=== PATIENT | female | born 1970 | race Caucasian/White ===

== ENCOUNTER 2019-10-16 07:35 | Emergency (ER) | payer OTHER, MEDICAID ==
[~2019-10-16] VITALS: Ht 170.2 cm; Wt 127.6 kg
[2019-10-16 07:48] VITALS: BP 156/95
== END 2019-10-16 09:29 | disposition home or self-care (01) ==
LOC: ED 09:20
DX: M75.31 Calcific tendinitis of right shoulder (principal); M25.511 Pain in right shoulder
CPT/HCPCS: 99283

== ENCOUNTER 2020-08-08 20:50 | Emergency (ER) | payer MEDICAID, OTHER ==
[~2020-08-08] VITALS: Ht 170.2 cm; Wt 95.0 kg
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
[2020-08-08 21:21] LABS: BASOPHILS % (AUTO) 4 % (0-1); EOSINOPHILS % (AUTO) 1 % (1-7); LYMPHOCYTES % (AUTO) 19 % (22-44); MEAN CORPUSCULAR HEMOGLOBIN 20.9 pg (27.0-34.8); MEAN CORPUSCULAR HGB CONC 30.8 g/dL (32.4-35.8); MEAN PLATELET VOLUME 6.7 fL (7.4-10.4); MONOCYTES % (AUTO) 7 % (2-9); NEUTROPHILS % (AUTO) 70 % (42-75); PLATELET COUNT 412 x10^3/uL (130-400); RED CELL DISTRIBUTION WIDTH 20.1 % (9.6-15.2)
[2020-08-08 21:27] LABS: MD MORPH REVIEW ONLY
[2020-08-08 21:28] LABS: ALANINE AMINOTRANSFERASE 26 U/L (12-78); ALBUMIN 3.8 g/dL (3.4-5.0); ANION GAP 6 mmol/L (5-15); CALCIUM 8.5 mg/dL (8.5-10.1); CHLORIDE 110 mmol/L (98-107); CREATININE 0.84 mg/dL (0.55-1.02)
[2020-08-08 21:29] LABS: SALICYLATE LEVEL < 1.7 mg/dL (2.8-20.0)
[2020-08-08 21:38] LABS: ALKALINE PHOSPHATASE 116 U/L (45-117); BILIRUBIN,TOTAL 0.3 mg/dL (0.2-1.0); TOTAL PROTEIN 7.5 g/dL (6.4-8.2)
--- NOTE | 2020-08-08 21:44 | NUR ---
got patient peanut butter jelly sandwich, daughter here visiting and being very supportive.
[2020-08-08 21:58] LABS: FREE T4 (FREE THYROXINE) 0.83 ng/dL (0.76-1.46)
[2020-08-08 22:01] LABS: AMPHETAMINE SCREEN, URINE Positive (Negative); BARBITURATE SCREEN, URINE Negative (Negative); BENZODIAZEPINE SCREEN, URINE Negative (Negative); CANNABINOID SCREEN, URINE Negative (Negative); COCAINE SCREEN, URINE Negative (Negative); METHADONE SCREEN, URINE Negative (Negative); OPIATE SCREEN, URINE Negative (Negative)
[2020-08-08 22:16] LABS: <PLATELET ESTIMATE> INCREASED; <PLT MORPHOLOGY> NORMAL PLT MORPH; HYPOCHROMIA 2+; MICROCYTOSIS 2+; OVALOCYTES 1+; POLYCHROMASIA 1+
[2020-08-08] MEDS ORDERED: DIPH,PERTUSS(ACELL),TET VAC/PF 0.5 ML IM-VACC ONE ×2 (22:30→23:26)
[2020-08-08] MEDS ORDERED: LIDOCAINE 1%-EPI 1:100K, 20ML INFIL ONE (22:30)
[2020-08-08] MEDS ORDERED: LIDOCAINE-MPF 1%, 5ML INFIL ONE (22:30)
--- NOTE | 2020-08-08 23:17 | NUR ---
j luis arndt [phone]
--- NOTE | 2020-08-08 23:40 | NUR ---
patient sutured. waiting telepsych. calm.
--- NOTE | 2020-08-09 00:46 | NUR ---
patient talking to telepsych
[2020-08-09 01:43] VITALS: BP 132/78
== END 2020-08-09 01:45 | disposition home or self-care (01) ==
LOC: ED 08-09 01:00
DX: S51.812A Laceration without foreign body of left forearm, initial encounter (principal); F43.20 Adjustment disorder, unspecified; D50.9 Iron deficiency anemia, unspecified; F17.210 Nicotine dependence, cigarettes, uncomplicated; F15.10 Other stimulant abuse, uncomplicated; J45.909 Unspecified asthma, uncomplicated; G43.909 Migraine, unspecified, not intractable, without status migrainosus; Z86.711 Personal history of pulmonary embolism; Z90.49 Acquired absence of other specified parts of digestive tract; X83.8XXA Intentional self-harm by other specified means, initial encounter; Y93.89 Activity, other specified; Y92.89 Other specified places as the place of occurrence of the external cause; Y99.8 Other external cause status
CPT/HCPCS: 12035; 36415; 80053; 80299; 80307; 80320; 80329; 84439; 84443; 84703; 85025; 90471; 90715; G0480

== ENCOUNTER 2020-08-19 14:43 | Emergency (ER) | payer MEDICAID ==
[~2020-08-19] VITALS: Ht 170.2 cm; Wt 129.5 kg
[2020-08-19 14:49] VITALS: BP 126/63
== END 2020-08-19 15:31 | disposition home or self-care (01) ==
LOC: ED 15:00
DX: S51.812D Laceration without foreign body of left forearm, subsequent encounter (principal); X58.XXXD Exposure to other specified factors, subsequent encounter
CPT/HCPCS: 99282

== ENCOUNTER 2020-08-27 07:33 | Emergency (ER) | payer MEDICAID ==
[~2020-08-27] VITALS: Ht 170.2 cm; Wt 132.6 kg
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
[2020-08-27] MEDS ORDERED: ALBUTEROL/IPRATROPIUM 2.5MG/0.5MG, 3 ML ONE (08:25)
[2020-08-27] MEDS ORDERED: ALBUTEROL/IPRATROPIUM 2.5MG/0.5MG, 3 ML NPPB ONE (08:30)
--- NOTE | 2020-08-27 08:34 | NUR ---
PT RESTING IN BED RECIEVING BREATHING TREATMENT. MEDICATED PER EMAR. VSS. NADN. HERNANDEZ AT BEDSIDE.
[2020-08-27 09:43] VITALS: BP 119/79
--- NOTE | 2020-08-27 10:17 | NUR ---
Patient given discharge instructions and they have confirmed that they understand the instructions. Patient ambulatory with steady gait.
== END 2020-08-27 10:18 | disposition home or self-care (01) ==
LOC: ED 07:47
DX: J45.41 Moderate persistent asthma with (acute) exacerbation (principal); Z86.711 Personal history of pulmonary embolism; Z90.49 Acquired absence of other specified parts of digestive tract
CPT/HCPCS: 71045; 94640; 99283; J7512